=== PATIENT | male | born 1945 ===

== ENCOUNTER 2020-02-01 15:45 | Inpatient (IN) | payer MEDICARE ==
[2020-02-01 21:16] LABS: Basophils # (Auto) 0.1 K/mm3 (0.0-0.1); Basophils % (Auto) 0.8 % (0.0-1.8); Eosinophils % (Auto) 0.7 % (0.0-4.3); Hematocrit 45.7 % (35.5-45.6); Hemoglobin 15.3 gm/dl (11.8-15.2); Lymphocytes # (Auto) 0.8 K/mm3 (1.2-5.4); Lymphocytes % (Auto) 12.1 % (13.4-35.0); Mean Corpuscular HGB Conc 34 % (32-34); Mean Corpuscular Volume 92 fl (84-94); Monocytes # (Auto) 0.4 K/mm3 (0.0-0.8); Monocytes % (Auto) 6.7 % (0.0-7.3); Platelet Count 184 K/mm3 (140-440); Red Blood Count 4.98 M/mm3 (3.65-5.03); Red Cell Distribution Width 14.3 % (13.2-15.2)
[2020-02-01] MEDS: MELATONIN 5 MG TAB PO SCH (21:21)
[2020-02-01] MEDS: traZODone 50 MG TAB PO PRN (21:21)
[2020-02-01 21:32] LABS: Alanine Aminotransferase 13 units/L (7-56); Albumin 4.5 g/dL (3.9-5); BUN/Creatinine Ratio 15; Blood Urea Nitrogen 16 mg/dL (9-20); Calcium 9.5 mg/dL (8.4-10.2); Chol/HDL Ratio 3.77 %; HDL Cholesterol 48 mg/dL (40-59); Hemolysis Index 13; LDL Cholesterol,Direct 120 mg/dL (50-130)
[2020-02-02] MEDS: LORazepam 2 MG/ML VIAL IM PRN ×2 (01:00→13:45)
[2020-02-02] MEDS ORDERED: NON-FORMULARY EACH (Clonazepam [Klonopin] 1 MG) PO PRN (10:25)
[2020-02-02] MEDS ORDERED: clonazePAM 0.5 MG TAB PO PRN (10:46)
--- NOTE | 2020-02-02 10:48 | History and Physical Report ---
GP History & Physical - History of Present Illness Date of admission: 02/01/20 Date of Examination: 02/02/20 Reason for Admission: Danger to self, Danger to others, Impaired reality testing, Unable to care for self Chief Complaint: Confused, aggressive, paranoid and searching for his gun History of Present Illness: The patient is a 74yo retired male with history of Dementia and multiple medical problems including Subdural bleed in 2019, CAD, CA and Nephrectomy. Per Nursing note, the patient's souse reports that the patient has been experiencing delusions and aggressive behavior at home. Spouse reports she has become fearful of patient's delusional behavior accusing spouse of having a boyfriend. Spouse reports further that patient has thrown her clothes out and he was asking for his gun, but he never have a gun. Patient scored 21 in mini- mental exam. Patient interviewed by me this morning. He is alert, calm and pleasant but confused. He states that he is at [facility], does not know why he is here, says "you tell me"; unable to tell today's date and states the year as 2019 and the month as November. He is able to name the current president correctly. He reports being good mood, denies SI/HI/AVH/Paranoia. He repeatedly asks the same questions despite receiving the answers to same questions a few minutes earlier. PAST PSYCHIATRIC HISTORY: Unknown PAST MEDICAL HISTORY: Back injury/pain, CHF, CAD, GERD, Kidney Stone, Hyperlipidemia, CA with surgical hx/o Appendectomy, Craniotomy, Hernia Repair, Nephrectomy and Spinal Fusion Family Psychiatric History None reported or documented SOCIAL HISTORY Marital Status: Living Arrangements: lives with Employment Status: retired Access to guns/weapons: no Education: some college History of Abuse: no Legal History: no REVIEW OF SYSTEMS Constitutional: Negative for weight loss ENT: Negative for stridor Respiratory: Negative for cough or hemoptysis All other systems reviewed and are negative MENTAL STATUS EXAMINATION General Appearance and Behavior: age appropriate, good eye contact, cooperative with questioning and polite Cooperation: Cooperative Psychomotor Behavior: within normal limits Mood: OK Affect and affective range: Congruent with stated mood Thought Process: Goal-directed Thought Content: Confused Speech: Normal volume and Regular rate and rhythm Intellectual Functioning Impaired Suicidal Ideation: Denies SI Homicidal Ideation: Denies HI Impulse Control: impaired Insight and Judgment: impaired insight and judgment Memory: impaired Attention: Normal Orientation: alert and oriented x 1 - Psychiatric problem (1) Dementia with behavioral disturbance Current Visit: Yes Status: Acute (2) Dementia with psychosis Current Visit: Yes Status: Acute Treatment Plan Patient will be admitted for inpatient psychiatric evaluation, medication adjustment and close monitoring. The patient's behavior, mood, sleep and appetite will be closely monitored. Patient will be enrolled in individual and group therapeutic sessions and encouraged to attend. Patient will be provided with a safe and structured environment. Patient's physical health needs will be addressed by the Hospitalist. Hospitalist Consulted Labs including CBC, CMP, Lipid profile and Hemoglobin A1C ordered Social Assessment will be completed and the Social Science Analyst will work with patient and family to ensure a suitable and safe disposition Medication adjustment will be made as clinically indicated Usual Wellness Sikh/Preservation: - Start Trazodone 50 mg po QHS & 50 mg po QHS PRN between 10 PM & 2 AM for insomnia - Start Melatonin 5 mg po QHS to promote circadian rhythm ELOS 7 days The patient agreed on the treatment plan, understood the risk, benefit, alternative treatment, potential consequence of no treatment, and gave informed consent Legal Status: Voluntary Patient Problems: Current Active Problems Dementia with behavioral disturbance (Acute) Dementia with psychosis (Acute) Reaction to Hospitalization: Accepting Medications and Allergies Allergies Allergy/AdvReac Type Severity Reaction Status Date / Time aripiprazole [From Abilify] AdvReac Unknown Verified 02/01/20 18:13 Home Medications Medication Instructions Recorded Confirmed Last Taken Type Amiodarone [Cordarone 200 MG TAB] 200 mg PO DAILY 02/02/20 02/02/20 Unknown History Aspirin EC [Halfprin EC] 81 mg PO QDAY 02/02/20 02/02/20 Unknown History Eszopiclone [Lunesta] 3 mg PO QHS 02/02/20 02/02/20 Unknown History Gabapentin [Neurontin] 600 mg PO QHS 02/02/20 02/02/20 Unknown History clonazePAM [Klonopin] 1 mg PO DAILY PRN 02/02/20 02/02/20 Unknown History Active Meds: Active Medications Amiodarone HCl (Cordarone) 200 mg PO DAILY [facility] Aspirin (Halfprin Ec) 81 mg PO QDAY [facility] Gabapentin (Gabapentin) 600 mg PO QHS [facility] Haloperidol (Haldol) 5 mg PO Q6H PRN PRN Reason: Agitation Lorazepam (Ativan) 2 mg IM Q6H PRN PRN Reason: Agitation Last Admin: 02/02/20 01:00 Dose: 2 mg Documented by: Melatonin (Melatonin) 5 mg PO QHS [facility] Last Admin: 02/01/20 21:21 Dose: 5 mg Documented by: Miscellaneous Medication (Clonazepam [Klonopin]) 1 mg PO DAILY PRN PRN Reason: Anxiety Miscellaneous Medication (Eszopiclone [Lunesta]) 3 mg PO QHS [facility] Trazodone HCl (Desyrel) 50 mg PO QHS PRN PRN Reason: insomnia Last Admin: 02/01/20 21:21 Dose: 50 mg Documented by: Results - Results Labs/Vitals: Laboratory Last Values WBC 6.7 K/mm3 (4.5-11.0) 02/01/20 20:43 RBC 4.98 M/mm3 (3.65-5.03) 02/01/20 20:43 Hgb 15.3 gm/dl (11.8-15.2) H 02/01/20 20:43 Hct 45.7 % (35.5-45.6) H 02/01/20 20:43 MCV 92 fl (84-94) 02/01/20 20:43 MCH 31 pg (28-32) 02/01/20 20:43 MCHC 34 % (32-34) 02/01/20 20:43 RDW 14.3 % (13.2-15.2) 02/01/20 20:43 Plt Count 184 K/mm3 (140-440) 02/01/20 20:43 Lymph % (Auto) 12.1 % (13.4-35.0) L 02/01/20 20:43 [place] % (Auto) 6.7 % (0.0-7.3) 02/01/20 20:43 Eos % (Auto) 0.7 % (0.0-4.3) 02/01/20 20:43 Baso % (Auto) 0.8 % (0.0-1.8) 02/01/20 20:43 Lymph # 0.8 K/mm3 (1.2-5.4) L 02/01/20 20:43 [place] # 0.4 K/mm3 (0.0-0.8) 02/01/20 20:43 Eos # 0.0 K/mm3 (0.0-0.4) 02/01/20 20:43 Baso # 0.1 K/mm3 (0.0-0.1) 02/01/20 20:43 Seg Neutrophils % 79.7 % (40.0-70.0) H 02/01/20 20:43 Seg Neutrophils # 5.3 K/mm3 (1.8-7.7) 02/01/20 20:43 Sodium 142 mmol/L (137-145) 02/01/20 20:43 Potassium 4.1 mmol/L (3.6-5.0) 02/01/20 20:43 Chloride 101.2 mmol/L (98-107) 02/01/20 20:43 Carbon Dioxide 21 mmol/L (22-30) L 02/01/20 20:43 Anion Gap 24 mmol/L 02/01/20 20:43 BUN 16 mg/dL (9-20) 02/01/20 20:43 Creatinine 1.1 mg/dL (0.8-1.5) 02/01/20 20:43 Estimated GFR > 60 ml/min 02/01/20 20:43 BUN/Creatinine Ratio 15 % 02/01/20 20:43 Glucose 118 mg/dL (75-100) H 02/01/20 20:43 POC Glucose 88 (70-105) 02/02/20 07:28 Hemoglobin A1c 5.4 % (4-6) 02/01/20 20:43 Calcium 9.5 mg/dL (8.4-10.2) 02/01/20 20:43 Total Bilirubin 0.60 mg/dL (0.1-1.2) 02/01/20 20:43 AST 22 units/L (5-40) 02/01/20 20:43 ALT 13 units/L (7-56) 02/01/20 20:43 Alkaline Phosphatase 127 units/L (35-129) 02/01/20 20:43 Total Protein 8.2 g/dL (6.3-8.2) 02/01/20 20:43 Albumin 4.5 g/dL (3.9-5) 02/01/20 20:43 Albumin/Globulin Ratio 1.2 % 02/01/20 20:43 Triglycerides 75 mg/dL (2-149) 02/01/20 20:43 Cholesterol 181 mg/dL (50-199) 02/01/20 20:43 LDL Cholesterol Direct 120 mg/dL (50-130) 02/01/20 20:43 HDL Cholesterol 48 mg/dL (40-59) 02/01/20 20:43 Cholesterol/HDL Ratio 3.77 % 02/01/20 20:43 TSH 2.410 mlU/mL (0.270-4.200) 02/01/20 20:43 Last Vital Signs Temp 98.3 F 02/02/20 07:45 Pulse 73 02/02/20 07:45 Resp 18 02/02/20 07:45 BP 148/73 02/02/20 07:45 Pulse Ox 94 02/02/20 07:45 Physical Examination - Constitutional Vitals: Vital Signs Temp Pulse Resp BP Pulse Ox 98.3 F 73 18 148/73 94 02/02/20 07:45 02/02/20 07:45 02/02/20 07:45 02/02/20 07:45 02/02/20 07:45 Temperature -Last 24 Hours Temperature 98.3 F Mental Status Exam - Vital signs Last Vital Signs Temp 98.3 F 02/02/20 07:45 Pulse 73 02/02/20 07:45 Resp 18 02/02/20 07:45 BP 148/73 02/02/20 07:45 Pulse Ox 94 02/02/20 07:45 Assessment and Plan - Psychiatric problem (1) Dementia with behavioral disturbance Current Visit: Yes Status: Acute (2) Dementia with psychosis Current Visit: Yes Status: Acute Physician Certification - Certification Statement Physician Certification Statement: This is an acknowledgement statement that AMANDO BYNUM is a 74 year old M who requires inpatient psychiatric admission for treatment which could reasonably be expected to improve the patient's condition for psychosis and behavioral disturbance Estimated period of time patient will need to remain in the hospital: [7] Plan for post-hospital care: [Out-patient care]
[2020-02-02] MEDS: HALOPERIDOL 5 MG TAB PO PRN ×2 (11:54→22:21)
[2020-02-02] MEDS: ASPIRIN EC 81 MG TAB PO SCH (11:54)
[2020-02-02] MEDS: AMIODARONE 200 MG TAB PO SCH (11:54)
[2020-02-02] MEDS ORDERED: ZIPRASIDONE MESYLATE 20 MG VIAL IM ONE (16:19)
[2020-02-02] MEDS ORDERED: ESZOPICLONE 3 MG PO SCH (22:00)
[2020-02-02] MEDS ORDERED: GABAPENTIN 300 MG CAP PO SCH (22:00)
[2020-02-02] MEDS ORDERED: QUEtiapine 25 MG TAB PO SCH (22:00)
[2020-02-02] MEDS: ZOLPIDEM 5 MG TAB PO PRN (22:20)
[2020-02-02] MEDS: traZODone 50 MG TAB PO PRN (22:20)
[2020-02-02] MEDS: MELATONIN 5 MG TAB PO SCH (22:21)
[2020-02-02] MEDS: DONEPEZIL 5 MG TAB PO SCH (22:21)
--- NOTE | 2020-02-03 08:14 | Progress Note ---
Subjective Date of service: 02/03/20 Principal diagnosis: Dementia with behavioral disturbance, Dementia with psychosis Subjective Comment: SUBJECTIVE: Patient reviewed this morning. He is pleasantly confused, denies SI/HI/AVH. Per telephone conversation with yesterday, reports that patient has been very paranoid, accusatory and seeking for his guns. He did not respond to Seroquel prescribed by his Neurologist. REVIEW OF SYSTEMS Constitutional: Negative for weight loss ENT: Negative for stridor Respiratory: Negative for cough or hemoptysis All other systems reviewed and are negative MENTAL STATUS EXAMINATION General Appearance and Behavior: age appropriate, good eye contact, cooperative with questioning and polite Cooperation: Cooperative Psychomotor Behavior: within normal limits Mood: OK Affect and affective range: Congruent with stated mood Thought Process: Goal-directed Thought Content: Confused Speech: Normal volume and Regular rate and rhythm Intellectual Functioning Impaired Suicidal Ideation: Denies SI Homicidal Ideation: Denies HI Impulse Control: impaired Insight and Judgment: impaired insight and judgment Memory: impaired Attention: Normal Orientation: alert and oriented x 1 - Psychiatric problem (1) Dementia with behavioral disturbance Current Visit: Yes Status: Acute (2) Dementia with psychosis Current Visit: Yes Status: Acute Treatment Plan Patient will be admitted for inpatient psychiatric evaluation, medication adjustment and close monitoring. The patient's behavior, mood, sleep and appetite will be closely monitored. Patient will be enrolled in individual and group therapeutic sessions and encouraged to attend. Patient will be provided with a safe and structured environment. Patient's physical health needs will be addressed by the Hospitalist. Hospitalist Consulted Labs including CBC, CMP, Lipid profile and Hemoglobin A1C ordered Social Assessment will be completed and the Service Promoter Salesperson will work with patient and family to ensure a suitable and safe disposition Medication adjustment will be made as clinically indicated Medication adjustment made today: Seroquel discontinued and Risperidone 0.5mg bid started for paranoia. ELOS 7 days The patient agreed on the treatment plan, understood the risk, benefit, alternative treatment, potential consequence of no treatment, and gave informed consent Legal Status: Voluntary Assessment and Plan - Patient Problems (1) Dementia with behavioral disturbance Current Visit: Yes Status: Acute (2) Dementia with psychosis Current Visit: Yes Status: Acute Medications and Allergies Allergies Allergy/AdvReac Type Severity Reaction Status Date / Time [facility] [[facility] AdvReac Unknown Verified 02/01/20 18:13 Home Medications Medication Instructions Recorded Confirmed Last Taken Type Amiodarone [Cordarone 200 MG TAB] 200 mg PO DAILY 02/02/20 02/02/20 Unknown History Aspirin EC [Halfprin EC] 81 mg PO QDAY 02/02/20 02/02/20 Unknown History Atorvastatin 20 mg PO QHS 02/02/20 02/02/20 Unknown History Eszopiclone [Lunesta] 3 mg PO QHS 02/02/20 02/02/20 Unknown History Gabapentin [Neurontin] 600 mg PO QHS 02/02/20 02/02/20 Unknown History Morphine 30 mg PO DAILY 02/02/20 02/02/20 Unknown History Omeprazole 20 mg PO DAILY 02/02/20 02/02/20 Unknown History Tamsulosin 0.4 mg PO QHS 02/02/20 02/02/20 Unknown History Venlafaxine Xr 37.5 mg PO DAILY 02/02/20 02/02/20 Unknown History clonazePAM [Klonopin] 1 mg PO DAILY PRN 02/02/20 02/02/20 Unknown History Active Meds: Active Medications Amiodarone HCl (Cordarone) 200 mg PO DAILY [facility] Last Admin: 02/02/20 11:54 Dose: 200 mg Documented by: Aspirin (Halfprin Ec) 81 mg PO QDAY [facility] Last Admin: 02/02/20 11:54 Dose: 81 mg Documented by: Clonazepam (Klonopin) 1 mg PO QDAY PRN PRN Reason: Anxiety Donepezil HCl (Aricept) 5 mg PO QHS [facility] Last Admin: 02/02/20 22:21 Dose: 5 mg Documented by: Gabapentin (Gabapentin) 600 mg PO QHS [facility] Last Admin: 02/02/20 22:20 Dose: 600 mg Documented by: Haloperidol (Haldol) 5 mg PO Q6H PRN PRN Reason: Agitation Last Admin: 02/02/20 22:21 Dose: 5 mg Documented by: Lorazepam (Ativan) 2 mg IM Q6H PRN PRN Reason: Agitation Last Admin: 02/02/20 13:45 Dose: 2 mg Documented by: Melatonin (Melatonin) 5 mg PO QHS [facility] Last Admin: 02/02/20 22:21 Dose: 5 mg Documented by: Miscellaneous Medication (Atorvastatin) 20 mg PO QHS [facility] Miscellaneous Medication (Morphine) 30 mg PO DAILY [facility] Miscellaneous Medication (Omeprazole) 20 mg PO DAILY [facility] Miscellaneous Medication (Tamsulosin) 0.4 mg PO QHS [facility] Miscellaneous Medication (Venlafaxine Xr) 37.5 mg PO DAILY [facility] Quetiapine Fumarate (Seroquel) 50 mg PO QHS [facility] Last Admin: 02/02/20 22:20 Dose: 50 mg Documented by: Trazodone HCl (Desyrel) 50 mg PO QHS PRN PRN Reason: insomnia Last Admin: 02/02/20 22:20 Dose: 50 mg Documented by: Zolpidem Tartrate (Ambien) 5 mg PO QHS PRN PRN Reason: Insomnia Last Admin: 02/02/20 22:20 Dose: 5 mg Documented by: Results - Results Labs/Vitals: Laboratory Last Values WBC 6.7 K/mm3 (4.5-11.0) 02/01/20 20:43 RBC 4.98 M/mm3 (3.65-5.03) 02/01/20 20:43 Hgb 15.3 gm/dl (11.8-15.2) H 02/01/20 20:43 Hct 45.7 % (35.5-45.6) H 02/01/20 20:43 MCV 92 fl (84-94) 02/01/20 20:43 MCH 31 pg (28-32) 02/01/20 20:43 MCHC 34 % (32-34) 02/01/20 20:43 RDW 14.3 % (13.2-15.2) 02/01/20 20:43 Plt Count 184 K/mm3 (140-440) 02/01/20 20:43 Lymph % (Auto) 12.1 % (13.4-35.0) L 02/01/20 20:43 [place] % (Auto) 6.7 % (0.0-7.3) 02/01/20 20:43 Eos % (Auto) 0.7 % (0.0-4.3) 02/01/20 20:43 Baso % (Auto) 0.8 % (0.0-1.8) 02/01/20 20:43 Lymph # 0.8 K/mm3 (1.2-5.4) L 02/01/20 20:43 [place] # 0.4 K/mm3 (0.0-0.8) 02/01/20 20:43 Eos # 0.0 K/mm3 (0.0-0.4) 02/01/20 20:43 Baso # 0.1 K/mm3 (0.0-0.1) 02/01/20 20:43 Seg Neutrophils % 79.7 % (40.0-70.0) H 02/01/20 20:43 Seg Neutrophils # 5.3 K/mm3 (1.8-7.7) 02/01/20 20:43 Sodium 142 mmol/L (137-145) 02/01/20 20:43 Potassium 4.1 mmol/L (3.6-5.0) 02/01/20 20:43 Chloride 101.2 mmol/L (98-107) 02/01/20 20:43 Carbon Dioxide 21 mmol/L (22-30) L 02/01/20 20:43 Anion Gap 24 mmol/L 02/01/20 20:43 BUN 16 mg/dL (9-20) 02/01/20 20:43 Creatinine 1.1 mg/dL (0.8-1.5) 02/01/20 20:43 Estimated GFR > 60 ml/min 02/01/20 20:43 BUN/Creatinine Ratio 15 % 02/01/20 20:43 Glucose 118 mg/dL (75-100) H 02/01/20 20:43 POC Glucose 88 (70-105) 02/02/20 07:28 Hemoglobin A1c 5.4 % (4-6) 02/01/20 20:43 Calcium 9.5 mg/dL (8.4-10.2) 02/01/20 20:43 Total Bilirubin 0.60 mg/dL (0.1-1.2) 02/01/20 20:43 AST 22 units/L (5-40) 02/01/20 20:43 ALT 13 units/L (7-56) 02/01/20 20:43 Alkaline Phosphatase 127 units/L (35-129) 02/01/20 20:43 Total Protein 8.2 g/dL (6.3-8.2) 02/01/20 20:43 Albumin 4.5 g/dL (3.9-5) 02/01/20 20:43 Albumin/Globulin Ratio 1.2 % 02/01/20 20:43 Triglycerides 75 mg/dL (2-149) 02/01/20 20:43 Cholesterol 181 mg/dL (50-199) 02/01/20 20:43 LDL Cholesterol Direct 120 mg/dL (50-130) 02/01/20 20: HDL Cholesterol 48 mg/dL (40-59) 02/01/20 20: Cholesterol/HDL Ratio 3.77 % 02/01/20 20:43 TSH 2.410 mlU/mL (0.270-4.200) 02/01/20 20:43 Last Vital Signs Temp 97.4 F L 02/02/20 22:00 Pulse 82 02/02/20 22:00 Resp 15 02/02/20 22:00 BP 147/74 02/02/20 22:00 Pulse Ox 91 02/02/20 22:00
[2020-02-03] MEDS ORDERED: VENLAFAXINE 37.5 MG PO SCH ×2 (10:00)
[2020-02-03] MEDS ORDERED: NON-FORMULARY EACH (Omeprazole 20 MG) PO SCH (10:00)
[2020-02-03] MEDS ORDERED: MORPHINE 30 MG PO SCH (10:00)
[2020-02-03] MEDS: PANTOPRAZOLE 20 MG TAB PO SCH (11:05)
[2020-02-03] MEDS: ASPIRIN EC 81 MG TAB PO SCH (11:05)
[2020-02-03] MEDS: AMIODARONE 200 MG TAB PO SCH (11:06)
[2020-02-03] MEDS: risperiDONE 0.25 MG TAB PO SCH ×2 (11:06→21:47)
[2020-02-03] MEDS: clonazePAM 0.5 MG TAB PO SCH ×2 (11:07→21:48)
[2020-02-03] MEDS: GABAPENTIN 300 MG CAP PO SCH ×2 (14:04→20:45)
--- NOTE | 2020-02-03 19:17 | Consultation ---
History of Present Illness - Reason for Consult Consult date: 02/02/20 Medical management Requesting physician: JANICE KUHN - History of Present Illness 74yo retired male with history of Dementia and multiple medical problems including Subdural bleed in 2019, CAD, MT and Nephrectomy. Per Nursing note, the patient's souse reports that the patient has been experiencing delusions and aggressive behavior at home. Spouse reports she has become fearful of patient's delusional behavior accusing spouse of having a boyfriend. Spouse reports further that patient has thrown her clothes out and he was asking for his gun, but he never have a gun. Patient scored 21 in mini- mental exam. He is alert, calm and pleasant but confused. He states that he is at [facility], does not know why he is here, says "you tell me"; unable to tell today's date and states the year as 2019 and the month as November. He is able to name the current president correctly. He reports being good mood, denies SI/HI/AVH/Paranoia. He repeatedly asks the same questions d espite receiving the answers to same questions a few minutes earlier. PAST PSYCHIATRIC HISTORY: Unknown PAST MEDICAL HISTORY: Back injury/pain, CHF, CAD, GERD, Kidney Stone, Hyperlipidemia, MT with surgical hx/o Appendectomy, Craniotomy, Hernia Repair, Nephrectomy and Spinal Fusion Family Psychiatric History None reported or documented SOCIAL HISTORY Marital Status: Living Arrangements: lives with Employment Status: retired Access to guns/weapons: no Education: some college History of Abuse: no Legal History: no REVIEW OF SYSTEMS Review of System: Constitutional: no fever, no chills, no weight loss Ears, eyes, nose, mouth and throat: no nasal congestion, no nasal discharge, no sinus pressure, no vision change, no red eye. Neck: No neck pain or rigidity. Cardiovascular: No chest pain, no orthopnea, no palpitations, no leg swelling Respiratory: No shortness of breath, no cough, no congestion, no wheezing Gastrointestinal: no abdominal pain, no nausea, no vomiting Genitourinary : no dysuria, no hematuria Musculoskeletal: no joint swelling or muscle ache Integumentary: no rash, no pruritis Neurological: no parathesias, no numbness, no tingling, confusion and dementia with agitation Endocrine: no cold or heat intolerance, no polyuria or polydipsia Hematologic/Lymphatic: no easy bruising, no easy bleeding, no gland swelling Allergic/Immunologic: no urticaria, no angioedema. Medications and Allergies Allergies Allergy/AdvReac Type Severity Reaction Status Date / Time aripiprazole [From Abilify] AdvReac Unknown Verified 02/01/20 18:13 Home Medications Medication Instructions Recorded Confirmed Last Taken Type Amiodarone [Cordarone 200 MG TAB] 200 mg PO DAILY 02/02/20 02/02/20 Unknown History Aspirin EC [Halfprin EC] 81 mg PO QDAY 02/02/20 02/02/20 Unknown History Atorvastatin 20 mg PO QHS 02/02/20 02/02/20 Unknown History Eszopiclone [Lunesta] 3 mg PO QHS 02/02/20 02/02/20 Unknown History Gabapentin [Neurontin] 600 mg PO QHS 02/02/20 02/02/20 Unknown History Morphine 30 mg PO DAILY 02/02/20 02/02/20 Unknown History Omeprazole 20 mg PO DAILY 02/02/20 02/02/20 Unknown History Tamsulosin 0.4 mg PO QHS 02/02/20 02/02/20 Unknown History Venlafaxine Xr 37.5 mg PO DAILY 02/02/20 02/02/20 Unknown History clonazePAM [Klonopin] 1 mg PO DAILY PRN 02/02/20 02/02/20 Unknown History Active Meds: Active Medications Amiodarone HCl (Cordarone) 200 mg PO DAILY [facility] Last Admin: 02/03/20 11:06 Dose: 200 mg Documented by: Aspirin (Halfprin Ec) 81 mg PO QDAY [facility] Last Admin: 02/03/20 11:05 Dose: 81 mg Documented by: Atorvastatin Calcium (Lipitor) 20 mg PO QHS [facility] Clonazepam (Klonopin) 1 mg PO QDAY PRN PRN Reason: Anxiety Clonazepam (Klonopin) 0.25 mg PO BID [facility] Last Admin: 02/03/20 11:07 Dose: 0.25 mg Documented by: Donepezil HCl (Aricept) 5 mg PO QHS [facility] Last Admin: 02/02/20 22:21 Dose: 5 mg Documented by: Gabapentin (Gabapentin) 300 mg PO TID [facility] Last Admin: 03/28/20 14:04 Dose: 300 mg Documented by: Haloperidol (Haldol) 5 mg PO Q6H PRN PRN Reason: Agitation Last Admin: 02/02/20 22:21 Dose: 5 mg Documented by: Lorazepam (Ativan) 2 mg IM Q6H PRN PRN Reason: Agitation Last Admin: 02/02/20 13:45 Dose: 2 mg Documented by: Melatonin (Melatonin) 5 mg PO QHS [facility] Last Admin: 02/02/20 22:21 Dose: 5 mg Documented by: Miscellaneous Medication (Morphine) 30 mg PO DAILY [facility] Miscellaneous Medication (Venlafaxine Xr) 37.5 mg PO DAILY [facility] Pantoprazole Sodium (Protonix) 20 mg PO QDAY [facility] Last Admin: 02/03/20 11:05 Dose: 20 mg Documented by: Risperidone (Risperdal) 0.5 mg PO BID [facility] Last Admin: 02/03/20 11:06 Dose: 0.5 mg Documented by: Tamsulosin HCl (Flomax) 0.4 mg PO QHS [facility] Trazodone HCl (Desyrel) 50 mg PO QHS PRN PRN Reason: insomnia Last Admin: 02/02/20 22:20 Dose: 50 mg Documented by: Zolpidem Tartrate (Ambien) 5 mg PO QHS PRN PRN Reason: Insomnia Last Admin: 02/02/20 22:20 Dose: 5 mg Documented by: Exam - Constitutional Vitals: Temp Pulse Resp BP Pulse Ox 98.4 F 83 18 120/53 93 02/03/20 09:22 02/03/20 09:22 02/03/20 09:22 02/03/20 09:22 02/03/20 09:22 General appearance: Present: no acute distress, well-nourished - EENT Eyes: Present: PERRL ENT: hearing intact, clear oral mucosa - Neck Neck: Present: supple, normal ROM - Respiratory Respiratory effort: normal Respiratory: bilateral: CTA - Cardiovascular Heart rate: 78 Rhythm: regular Heart Sounds: Present: S1 & S2. Absent: rub, click - Extremities Extremities: pulses symmetrical, No edema Peripheral Pulses: within normal limits - Abdominal General gastrointestinal: Present: soft, non-tender, non-distended, normal bowel sounds Male genitourinary: Present: normal - Integumentary Integumentary: Present: clear, warm, dry - Musculoskeletal Musculoskeletal: gait normal, strength equal bilaterally - Psychiatric Psychiatric: appropriate mood/affect, intact judgment & insight - Neurologic Neurologic: CNII-XII intact, moves all extremities Results - Labs CBC & Chem 7: 02/01/20 20:43 02/01/20 20:43 Assessment and Plan - Patient Problems (1) Hypertension Current Visit: Yes Status: Chronic Qualifiers: Hypertension type: essential hypertension Qualified Code(s): I10 - Essential (primary) hypertension Plan to address problem: Continue antihypertensives (2) Arrhythmia Current Visit: Yes Status: Chronic Qualifiers: Arrhythmia type: unspecified cardiac arrhythmia Qualified Code(s): I49.9 - Cardiac arrhythmia, unspecified Plan to address problem: Continue amiodarone (3) Generalized anxiety disorder Current Visit: Yes Status: Chronic Plan to address problem: Continue clonazepam (4) Hyperlipidemia Current Visit: Yes Status: Chronic Qualifiers: Hyperlipidemia type: mixed hyperlipidemia Qualified Code(s): E78.2 - Mixed hyperlipidemia Plan to address problem: Continue statins in the form of atorvastatin 20 mg p.o. daily (5) GERD (gastroesophageal reflux disease) Current Visit: Yes Status: Chronic Qualifiers: Esophagitis presence: without esophagitis Qualified Code(s): K21.9 - Gastro-esophageal reflux disease without esophagitis Plan to address problem: Continue omeprazole 20 mg once a day (6) BPH (benign prostatic hyperplasia) Current Visit: Yes Status: Chronic Qualifiers: Lower urinary tract symptom presence: symptoms present Lower urinary tract symptom detail: urinary hesitancy Qualified Code(s): N40.1 - Benign prostatic hyperplasia with lower urinary tract symptoms; R39.11 - Hesitancy of micturition Plan to address problem: Continue Flomax 0.4 mg once a day (7) Depression Current Visit: Yes Status: Chronic Qualifiers: Depression Type: unspecified Qualified Code(s): F32.9 - Major depressive disorder, single episode, unspecified Plan to address problem: Continue Effexor 37.5 mg once a day (8) DVT prophylaxis Current Visit: Yes Status: Acute Plan to address problem: On heparin 5000 every 12 and GI prophylaxis
[2020-02-03] MEDS: ZOLPIDEM 5 MG TAB PO PRN (21:48)
[2020-02-03] MEDS: DONEPEZIL 5 MG TAB PO SCH (21:48)
[2020-02-03] MEDS: MELATONIN 5 MG TAB PO SCH (21:48)
[2020-02-03] MEDS: traZODone 50 MG TAB PO PRN (21:48)
[2020-02-03] MEDS: TAMSULOSIN 0.4 MG CAP PO SCH (21:48)
[2020-02-03] MEDS: HEPARIN 5,000 UNIT/1 ML VIAL SUB-Q SCH (21:49)
--- NOTE | 2020-02-04 08:14 | Progress Note ---
Subjective Date of service: 02/04/20 Principal diagnosis: Dementia with behavioral disturbance, Dementia with psychosis Subjective Comment: SUBJECTIVE: Patient reviewed this morning. He is pleasantly confused, he believes that he is somewhere in [place]. He denies SI/HI/AVH. He is compliant with medications. No reported or observed side effects. He slept well last night. Appetite is good. REVIEW OF SYSTEMS Constitutional: Negative for weight loss ENT: Negative for stridor Respiratory: Negative for cough or hemoptysis All other systems reviewed and are negative MENTAL STATUS EXAMINATION General Appearance and Behavior: age appropriate, good eye contact, cooperative with questioning and polite Cooperation: Cooperative Psychomotor Behavior: within normal limits Mood: OK Affect and affective range: Congruent with stated mood Thought Process: Goal-directed Thought Content: Confused Speech: Normal volume and Regular rate and rhythm Intellectual Functioning Impaired Suicidal Ideation: Denies SI Homicidal Ideation: Denies HI Impulse Control: impaired Insight and Judgment: impaired insight and judgment Memory: impaired Attention: Normal Orientation: alert and oriented x 1 - Psychiatric problem (1) Dementia with behavioral disturbance Current Visit: Yes Status: Acute (2) Dementia with psychosis Current Visit: Yes Status: Acute Treatment Plan Patient will be admitted for inpatient psychiatric evaluation, medication adjustment and close monitoring. The patient's behavior, mood, sleep and appetite will be closely monitored. Patient will be enrolled in individual and group therapeutic sessions and encouraged to attend. Patient will be provided with a safe and structured environment. Patient's physical health needs will be addressed by the Hospitalist. Hospitalist Consulted Labs including CBC, CMP, Lipid profile and Hemoglobin A1C ordered Social Assessment will be completed and the Manager Universal will work with patient and family to ensure a suitable and safe disposition Medication adjustment will be made as clinically indicated Medication adjustment made today: None ELOS 3 days Legal Status: Voluntary Assessment and Plan - Patient Problems (1) Dementia with behavioral disturbance Current Visit: Yes Status: Acute (2) Dementia with psychosis Current Visit: Yes Status: Acute Medications and Allergies Allergies Allergy/AdvReac Type Severity Reaction Status Date / Time aripiprazole [From Abilify] AdvReac Unknown Verified 02/01/20 18:13 Home Medications Medication Instructions Recorded Confirmed Last Taken Type Amiodarone [Cordarone 200 MG TAB] 200 mg PO DAILY 02/02/20 02/02/20 Unknown History Aspirin EC [Halfprin EC] 81 mg PO QDAY 02/02/20 02/02/20 Unknown History Atorvastatin 20 mg PO QHS 02/02/20 02/02/20 Unknown History Eszopiclone [Lunesta] 3 mg PO QHS 02/02/20 02/02/20 Unknown History Gabapentin [Neurontin] 600 mg PO QHS 02/02/20 02/02/20 Unknown History Morphine 30 mg PO DAILY 02/02/20 02/02/20 Unknown History Omeprazole 20 mg PO DAILY 02/02/20 02/02/20 Unknown History Tamsulosin 0.4 mg PO QHS 02/02/20 02/02/20 Unknown History Venlafaxine Xr 37.5 mg PO DAILY 02/02/20 02/02/20 Unknown History clonazePAM [Klonopin] 1 mg PO DAILY PRN 02/02/20 02/02/20 Unknown History Active Meds: Active Medications Amiodarone HCl (Cordarone) 200 mg PO DAILY [facility] Last Admin: 02/03/20 11:06 Dose: 200 mg Documented by: Aspirin (Halfprin Ec) 81 mg PO QDAY [facility] Last Admin: 02/03/20 11:05 Dose: 81 mg Documented by: Atorvastatin Calcium (Lipitor) 20 mg PO QHS [facility] Last Admin: 02/03/20 21:48 Dose: 20 mg Documented by: Clonazepam (Klonopin) 1 mg PO QDAY PRN PRN Reason: Anxiety Clonazepam (Klonopin) 0.25 mg PO BID [facility] Last Admin: 02/03/20 21:48 Dose: 0.25 mg Documented by: Donepezil HCl (Aricept) 5 mg PO QHS [facility] Last Admin: 02/03/20 21:48 Dose: 5 mg Documented by: Gabapentin (Gabapentin) 300 mg PO TID [facility] Last Admin: 02/03/20 20:45 Dose: 300 mg Documented by: Haloperidol (Haldol) 5 mg PO Q6H PRN PRN Reason: Agitation Last Admin: 02/02/20 22:21 Dose: 5 mg Documented by: Heparin Sodium (Porcine) (Heparin) 5,000 unit SUB-Q Q12HR [facility] Last Admin: 02/03/20 21:49 Dose: Not Given Documented by: Lorazepam (Ativan) 2 mg IM Q6H PRN PRN Reason: Agitation Last Admin: 02/02/20 13:45 Dose: 2 mg Documented by: Melatonin (Melatonin) 5 mg PO QHS [facility] Last Admin: 02/03/20 21:48 Dose: 5 mg Documented by: Miscellaneous Medication (Morphine) 30 mg PO DAILY [facility] Miscellaneous Medication (Venlafaxine Xr) 37.5 mg PO DAILY [facility] Pantoprazole Sodium (Protonix) 20 mg PO QDAY [facility] Last Admin: 02/03/20 11:05 Dose: 20 mg Documented by: Risperidone (Risperdal) 0.5 mg PO BID [facility] Last Admin: 02/03/20 21:47 Dose: 0.5 mg Documented by: Tamsulosin HCl (Flomax) 0.4 mg PO QHS [facility] Last Admin: 02/03/20 21:48 Dose: 0.4 mg Documented by: Trazodone HCl (Desyrel) 50 mg PO QHS PRN PRN Reason: insomnia Last Admin: 02/03/20 21:48 Dose: 50 mg Documented by: Zolpidem Tartrate (Ambien) 5 mg PO QHS PRN PRN Reason: Insomnia Last Admin: 02/03/20 21:48 Dose: 5 mg Documented by: Results - Results Labs/Vitals: Laboratory Last Values WBC 6.7 K/mm3 (4.5-11.0) 02/01/20 20:43 RBC 4.98 M/mm3 (3.65-5.03) 02/01/20 20:43 Hgb 15.3 gm/dl (11.8-15.2) H 02/01/20 20:43 Hct 45.7 % (35.5-45.6) H 02/01/20 20:43 MCV 92 fl (84-94) 02/01/20 20:43 MCH 31 pg (28-32) 02/01/20 20:43 MCHC 34 % (32-34) 02/01/20 20:43 RDW 14.3 % (13.2-15.2) 02/01/20 20:43 Plt Count 184 K/mm3 (140-440) 02/01/20 20:43 Lymph % (Auto) 12.1 % (13.4-35.0) L 02/01/20 20:43 [place] % (Auto) 6.7 % (0.0-7.3) 02/01/20 20:43 Eos % (Auto) 0.7 % (0.0-4.3) 02/01/20 20:43 Baso % (Auto) 0.8 % (0.0-1.8) 02/01/20 20:43 Lymph # 0.8 K/mm3 (1.2-5.4) L 02/01/20 20:43 [place] # 0.4 K/mm3 (0.0-0.8) 02/01/20 20:43 Eos # 0.0 K/mm3 (0.0-0.4) 02/01/20 20:43 Baso # 0.1 K/mm3 (0.0-0.1) 02/01/20 20:43 Seg Neutrophils % 79.7 % (40.0-70.0) H 02/01/20 20:43 Seg Neutrophils # 5.3 K/mm3 (1.8-7.7) 02/01/20 20:43 Sodium 142 mmol/L (137-145) 02/01/20 20:43 Potassium 4.1 mmol/L (3.6-5.0) 02/01/20 20:43 Chloride 101.2 mmol/L (98-107) 02/01/20 20:43 Carbon Dioxide 21 mmol/L (22-30) L 02/01/20 20:43 Anion Gap 24 mmol/L 02/01/20 20:43 BUN 16 mg/dL (9-20) 02/01/20 20:43 Creatinine 1.1 mg/dL (0.8-1.5) 02/01/20 20:43 Estimated GFR > 60 ml/min 02/01/20 20:43 BUN/Creatinine Ratio 15 % 02/01/20 20:43 Glucose 118 mg/dL (75-100) H 02/01/20 20:43 POC Glucose 88 (70-105) 02/02/20 07:28 Hemoglobin A1c 5.4 % (4-6) 02/01/20 20:43 Calcium 9.5 mg/dL (8.4-10.2) 02/01/20 20:43 Total Bilirubin 0.60 mg/dL (0.1-1.2) 02/01/20 20:43 AST 22 units/L (5-40) 02/01/20 20:43 ALT 13 units/L (7-56) 02/01/20 20:43 Alkaline Phosphatase 127 units/L (35-129) 02/01/20 20:43 Total Protein 8.2 g/dL (6.3-8.2) 02/01/20 20:43 Albumin 4.5 g/dL (3.9-5) 02/01/20 20:43 Albumin/Globulin Ratio 1.2 % 02/01/20 20:43 Triglycerides 75 mg/dL (2-149) 02/01/20 20:43 Cholesterol 181 mg/dL (50-199) 02/01/20 20:43 LDL Cholesterol Direct 120 mg/dL (50-130) 02/01/20 20:43 HDL Cholesterol 48 mg/dL (40-59) 02/01/20 20:43 Cholesterol/HDL Ratio 3.77 % 02/01/20 20:43 TSH 2.410 mlU/mL (0.270-4.200) 02/01/20 20:43 Last Vital Signs Temp 97.4 F L 02/03/20 22:00 Pulse 70 02/03/20 22:00 Resp 20 02/03/20 22:00 BP 129/64 02/03/20 22:00 Pulse Ox 95 02/03/20 22:00
[2020-02-04] MEDS: PANTOPRAZOLE 20 MG TAB PO SCH (09:48)
[2020-02-04] MEDS: ASPIRIN EC 81 MG TAB PO SCH (09:48)
[2020-02-04] MEDS: AMIODARONE 200 MG TAB PO SCH (09:48)
[2020-02-04] MEDS: risperiDONE 0.25 MG TAB PO SCH ×2 (09:48→21:51)
[2020-02-04] MEDS: clonazePAM 0.5 MG TAB PO SCH ×2 (09:49→21:49)
[2020-02-04] MEDS: GABAPENTIN 300 MG CAP PO SCH ×3 (09:49→20:38)
[2020-02-04] MEDS: HEPARIN 5,000 UNIT/1 ML VIAL SUB-Q SCH ×2 (10:48→21:14)
[2020-02-04] MEDS: MELATONIN 5 MG TAB PO SCH (21:50)
[2020-02-04] MEDS: DONEPEZIL 5 MG TAB PO SCH (21:50)
[2020-02-04] MEDS: TAMSULOSIN 0.4 MG CAP PO SCH (21:50)
[2020-02-04] MEDS: ZOLPIDEM 5 MG TAB PO PRN (21:51)
[2020-02-04] MEDS: traZODone 50 MG TAB PO PRN (21:51)
[2020-02-05] MEDS: PANTOPRAZOLE 20 MG TAB PO SCH (09:11)
[2020-02-05] MEDS: GABAPENTIN 300 MG CAP PO SCH ×3 (09:11→20:42)
[2020-02-05] MEDS: ASPIRIN EC 81 MG TAB PO SCH (09:11)
[2020-02-05] MEDS: risperiDONE 0.25 MG TAB PO SCH ×2 (09:11→21:31)
[2020-02-05] MEDS: clonazePAM 0.5 MG TAB PO SCH ×3 (09:12→21:32)
[2020-02-05] MEDS: AMIODARONE 200 MG TAB PO SCH (09:12)
--- NOTE | 2020-02-05 09:37 | Progress Note ---
Subjective Date of service: 02/05/20 Principal diagnosis: Dementia with behavioral disturbance, Dementia with psychosis Subjective Comment: SUBJECTIVE: Patient reviewed this morning. Nursing staff reports pt is alert and oriented x3, calm and cooperative, confused at time, very forgetful, always asking for one time over and over after being spoken to about the same thing, spoke to his but did not remember talking to her, and was asking for phone to call her, pt is medication compliant, good appetite, c/o inability to sleep, ambien 5mg po and trazodone 50mg given prn for sleep, no distress noted. Patient reviewed this morning. He is pleasantly confused. He denies SI/HI/AVH. He is compliant with medications. No reported or observed side effects. He did sleep well last night. Appetite is good. Reason for continuing inpatient treatment: To address sleeping difficulties REVIEW OF SYSTEMS Constitutional: Negative for weight loss ENT: Negative for stridor Respiratory: Negative for cough or hemoptysis All other systems reviewed and are negative MENTAL STATUS EXAMINATION General Appearance and Behavior: age appropriate, good eye contact, cooperative with questioning and polite Cooperation: Cooperative Psychomotor Behavior: within normal limits Mood: OK Affect and affective range: Congruent with stated mood Thought Process: Goal-directed Thought Content: Confused Speech: Normal volume and Regular rate and rhythm Intellectual Functioning Impaired Suicidal Ideation: Denies SI Homicidal Ideation: Denies HI Impulse Control: impaired Insight and Judgment: impaired insight and judgment Memory: impaired Attention: Normal Orientation: alert and oriented x 1 - Psychiatric problem (1) Dementia with behavioral disturbance Current Visit: Yes Status: Acute (2) Dementia with psychosis Current Visit: Yes Status: Acute Treatment Plan Patient will be admitted for inpatient psychiatric evaluation, medication adjustment and close monitoring. The patient's behavior, mood, sleep and appetite will be closely monitored. Patient will be enrolled in individual and group therapeutic sessions and encouraged to attend. Patient will be provided with a safe and structured environment. Patient's physical health needs will be addressed by the Hospitalist. Hospitalist Consulted Labs including CBC, CMP, Lipid profile and Hemoglobin A1C ordered Social Assessment will be completed and the Hose Stripper will work with patient and family to ensure a suitable and safe disposition Medication adjustment will be made as clinically indicated Medication adjustment made today: Clonazepam increased to 0.25mg qam, qnoon and 1 mg qhs. Melatonin increased to 10mg qhs ELOS 3 days Legal Status: Voluntary Assessment and Plan - Patient Problems (1) Dementia with behavioral disturbance Current Visit: Yes Status: Acute (2) Dementia with psychosis Current Visit: Yes Status: Acute Medications and Allergies Allergies Allergy/AdvReac Type Severity Reaction Status Date / Time aripiprazole [From Abilify] AdvReac Unknown Verified 02/01/20 18:13 Home Medications Medication Instructions Recorded Confirmed Last Taken Type Amiodarone [Cordarone 200 MG TAB] 200 mg PO DAILY 02/02/20 02/02/20 Unknown History Aspirin EC [Halfprin EC] 81 mg PO QDAY 02/02/20 02/02/20 Unknown History Atorvastatin 20 mg PO QHS 02/02/20 02/02/20 Unknown History Eszopiclone [Lunesta] 3 mg PO QHS 02/02/20 02/02/20 Unknown History Gabapentin [Neurontin] 600 mg PO QHS 02/02/20 02/02/20 Unknown History Morphine 30 mg PO DAILY 02/02/20 02/02/20 Unknown History Omeprazole 20 mg PO DAILY 02/02/20 02/02/20 Unknown History Tamsulosin 0.4 mg PO QHS 02/02/20 02/02/20 Unknown History Venlafaxine Xr 37.5 mg PO DAILY 02/02/20 02/02/20 Unknown History clonazePAM [Klonopin] 1 mg PO DAILY PRN 02/02/20 02/02/20 Unknown History Active Meds: Active Medications Amiodarone HCl (Cordarone) 200 mg PO DAILY [facility] Last Admin: 02/05/20 09:12 Dose: 200 mg Documented by: Aspirin (Halfprin Ec) 81 mg PO QDAY [facility] Last Admin: 02/05/20 09:11 Dose: 81 mg Documented by: Atorvastatin Calcium (Lipitor) 20 mg PO QHS [facility] Last Admin: 02/04/20 21:50 Dose: 20 mg Documented by: Clonazepam (Klonopin) 1 mg PO QDAY PRN PRN Reason: Anxiety Clonazepam (Klonopin) 0.25 mg PO BID [facility] Last Admin: 02/05/20 09:12 Dose: 0.25 mg Documented by: Donepezil HCl (Aricept) 5 mg PO QHS [facility] Last Admin: 02/04/20 21:50 Dose: 5 mg Documented by: Gabapentin (Gabapentin) 300 mg PO TID [facility] Last Admin: 02/05/20 09:11 Dose: 300 mg Documented by: Haloperidol (Haldol) 5 mg PO Q6H PRN PRN Reason: Agitation Last Admin: 02/02/20 22:21 Dose: 5 mg Documented by: Lorazepam (Ativan) 2 mg IM Q6H PRN PRN Reason: Agitation Last Admin: 02/02/20 13:45 Dose: 2 mg Documented by: Melatonin (Melatonin) 5 mg PO QHS [facility] Last Admin: 02/04/20 21:50 Dose: 5 mg Documented by: Miscellaneous Medication (Morphine) 30 mg PO DAILY [facility] Miscellaneous Medication (Venlafaxine Xr) 37.5 mg PO DAILY [facility] Pantoprazole Sodium (Protonix) 20 mg PO QDAY [facility] Last Admin: 02/05/20 09:11 Dose: 20 mg Documented by: Risperidone (Risperdal) 0.5 mg PO BID [facility] Last Admin: 02/05/20 09:11 Dose: 0.5 mg Documented by: Tamsulosin HCl (Flomax) 0.4 mg PO QHS [facility] Last Admin: 02/04/20 21:50 Dose: 0.4 mg Documented by: Trazodone HCl (Desyrel) 50 mg PO QHS PRN PRN Reason: insomnia Last Admin: 02/04/20 21:51 Dose: 50 mg Documented by: Zolpidem Tartrate (Ambien) 5 mg PO QHS PRN PRN Reason: Insomnia Last Admin: 02/04/20 21:51 Dose: 5 mg Documented by: Results - Results Labs/Vitals: Laboratory Last Values WBC 6.7 K/mm3 (4.5-11.0) 02/01/20 20:43 RBC 4.98 M/mm3 (3.65-5.03) 02/01/20 20:43 Hgb 15.3 gm/dl (11.8-15.2) H 02/01/20 20:43 Hct 45.7 % (35.5-45.6) H 02/01/20 20:43 MCV 92 fl (84-94) 02/01/20 20:43 MCH 31 pg (28-32) 02/01/20 20:43 MCHC 34 % (32-34) 02/01/20 20:43 RDW 14.3 % (13.2-15.2) 02/01/20 20:43 Plt Count 184 K/mm3 (140-440) 02/01/20 20:43 Lymph % (Auto) 12.1 % (13.4-35.0) L 02/01/20 20:43 [place] % (Auto) 6.7 % (0.0-7.3) 02/01/20 20:43 Eos % (Auto) 0.7 % (0.0-4.3) 02/01/20 20:43 Baso % (Auto) 0.8 % (0.0-1.8) 02/01/20 20:43 Lymph # 0.8 K/mm3 (1.2-5.4) L 02/01/20 20:43 [place] # 0.4 K/mm3 (0.0-0.8) 02/01/20 20:43 Eos # 0.0 K/mm3 (0.0-0.4) 02/01/20 20:43 Baso # 0.1 K/mm3 (0.0-0.1) 02/01/20 20:43 Seg Neutrophils % 79.7 % (40.0-70.0) H 02/01/20 20:43 Seg Neutrophils # 5.3 K/mm3 (1.8-7.7) 02/01/20 20:43 Sodium 142 mmol/L (137-145) 02/01/20 20:43 Potassium 4.1 mmol/L (3.6-5.0) 02/01/20 20:43 Chloride 101.2 mmol/L (98-107) 02/01/20 20:43 Carbon Dioxide 21 mmol/L (22-30) L 02/01/20 20:43 Anion Gap 24 mmol/L 02/01/20 20:43 BUN 16 mg/dL (9-20) 02/01/20 20:43 Creatinine 1.1 mg/dL (0.8-1.5) 02/01/20 20:43 Estimated GFR > 60 ml/min 02/01/20 20:43 BUN/Creatinine Ratio 15 % 02/01/20 20:43 Glucose 118 mg/dL (75-100) H 02/01/20 20:43 POC Glucose 88 (70-105) 02/02/20 07:28 Hemoglobin A1c 5.4 % (4-6) 02/01/20 20:43 Calcium 9.5 mg/dL (8.4-10.2) 02/01/20 20:43 Total Bilirubin 0.60 mg/dL (0.1-1.2) 02/01/20 20:43 AST 22 units/L (5-40) 02/01/20 20:43 ALT 13 units/L (7-56) 02/01/20 20:43 Alkaline Phosphatase 127 units/L (35-129) 02/01/20 20:43 Total Protein 8.2 g/dL (6.3-8.2) 02/01/20 20:43 Albumin 4.5 g/dL (3.9-5) 02/01/20 20:43 Albumin/Globulin Ratio 1.2 % 02/01/20 20:43 Triglycerides 75 mg/dL (2-149) 02/01/20 20:43 Cholesterol 181 mg/dL (50-199) 02/01/20 20:43 LDL Cholesterol Direct 120 mg/dL (50-130) 02/01/20 20:43 HDL Cholesterol 48 mg/dL (40-59) 02/01/20 20:43 Cholesterol/HDL Ratio 3.77 % 02/01/20 20:43 TSH 2.410 mlU/mL (0.270-4.200) 02/01/20 20:43 Last Vital Signs Temp 97.6 F 02/05/20 07:31 Pulse 79 02/05/20 07:31 Resp 18 02/05/20 07:31 BP 131/64 02/05/20 07:31 Pulse Ox 95 02/05/20 07:31
[2020-02-05] MEDS: HALOPERIDOL 5 MG TAB PO PRN (12:12)
[2020-02-05] MEDS: TAMSULOSIN 0.4 MG CAP PO SCH (21:29)
[2020-02-05] MEDS: DONEPEZIL 5 MG TAB PO SCH (21:32)
[2020-02-05] MEDS: MELATONIN 5 MG TAB PO SCH (21:34)
[2020-02-06] MEDS: GABAPENTIN 300 MG CAP PO SCH ×3 (08:40→21:21)
[2020-02-06] MEDS: clonazePAM 0.5 MG TAB PO SCH ×3 (08:40→21:22)
[2020-02-06] MEDS: ASPIRIN EC 81 MG TAB PO SCH (09:13)
[2020-02-06] MEDS: PANTOPRAZOLE 20 MG TAB PO SCH (09:13)
[2020-02-06] MEDS: risperiDONE 0.25 MG TAB PO SCH ×2 (09:13→21:23)
[2020-02-06] MEDS: AMIODARONE 200 MG TAB PO SCH (09:13)
--- NOTE | 2020-02-06 09:15 | Progress Note ---
Subjective Date of service: 02/06/20 Principal diagnosis: Dementia with behavioral disturbance, Dementia with psychosis Subjective Comment: SUBJECTIVE: Patient reviewed this morning. He is pleasantly confused. He denies SI/HI/AVH. He is compliant with medications. No reported or observed side effects. He slept better last night. Appetite is good. Reason for continuing inpatient treatment: Unable to care for self. REVIEW OF SYSTEMS Constitutional: Negative for weight loss ENT: Negative for stridor Respiratory: Negative for cough or hemoptysis All other systems reviewed and are negative MENTAL STATUS EXAMINATION General Appearance and Behavior: age appropriate, good eye contact, cooperative with questioning and polite Cooperation: Cooperative Psychomotor Behavior: within normal limits Mood: OK Affect and affective range: Congruent with stated mood Thought Process: Goal-directed Thought Content: Confused Speech: Normal volume and Regular rate and rhythm Intellectual Functioning Impaired Suicidal Ideation: Denies SI Homicidal Ideation: Denies HI Impulse Control: impaired Insight and Judgment: impaired insight and judgment Memory: impaired Attention: Normal Orientation: alert and oriented x 1 - Psychiatric problem (1) Dementia with behavioral disturbance Current Visit: Yes Status: Acute (2) Dementia with psychosis Current Visit: Yes Status: Acute Treatment Plan Patient will be admitted for inpatient psychiatric evaluation, medication adjustment and close monitoring. The patient's behavior, mood, sleep and appetite will be closely monitored. Patient will be enrolled in individual and group therapeutic sessions and encouraged to attend. Patient will be provided with a safe and structured environment. Patient's physical health needs will be addressed by the Hospitalist. Hospitalist Consulted Labs including CBC, CMP, Lipid profile and Hemoglobin A1C ordered Social Assessment will be completed and the Scene Painter will work with patient and family to ensure a suitable and safe disposition Medication adjustment will be made as clinically indicated Medication adjustment made today: None ELOS 1 - 2 days Legal Status: Voluntary Assessment and Plan - Patient Problems (1) Dementia with behavioral disturbance Current Visit: Yes Status: Acute (2) Dementia with psychosis Current Visit: Yes Status: Acute Medications and Allergies Allergies Allergy/AdvReac Type Severity Reaction Status Date / Time aripiprazole [From Abilify] AdvReac Unknown Verified 02/01/20 18:13 Home Medications Medication Instructions Recorded Confirmed Last Taken Type Amiodarone [Cordarone 200 MG TAB] 200 mg PO DAILY 02/02/20 02/02/20 Unknown History Aspirin EC [Halfprin EC] 81 mg PO QDAY 02/02/20 02/02/20 Unknown History Atorvastatin 20 mg PO QHS 02/02/20 02/02/20 Unknown History Eszopiclone [Lunesta] 3 mg PO QHS 02/02/20 02/02/20 Unknown History Gabapentin [Neurontin] 600 mg PO QHS 02/02/20 02/02/20 Unknown History Morphine 30 mg PO DAILY 02/02/20 02/02/20 Unknown History Omeprazole 20 mg PO DAILY 02/02/20 02/02/20 Unknown History Tamsulosin 0.4 mg PO QHS 02/02/20 02/02/20 Unknown History Venlafaxine Xr 37.5 mg PO DAILY 02/02/20 02/02/20 Unknown History clonazePAM [Klonopin] 1 mg PO DAILY PRN 02/02/20 02/02/20 Unknown History Active Meds: Active Medications Amiodarone HCl (Cordarone) 200 mg PO DAILY [facility] Last Admin: 02/05/20 09:12 Dose: 200 mg Documented by: Aspirin (Halfprin Ec) 81 mg PO QDAY [facility] Last Admin: 02/05/20 09:11 Dose: 81 mg Documented by: Atorvastatin Calcium (Lipitor) 20 mg PO QHS [facility] Last Admin: 02/05/20 21:29 Dose: 20 mg Documented by: Clonazepam (Klonopin) 1 mg PO QHS [facility] Last Admin: 02/05/20 21:32 Dose: 1 mg Documented by: Clonazepam (Klonopin) 0.25 mg PO BIDBL [facility] Last Admin: 02/05/20 12:12 Dose: 0.25 mg Documented by: Donepezil HCl (Aricept) 5 mg PO QHS [facility] Last Admin: 02/05/20 21:32 Dose: 5 mg Documented by: Gabapentin (Gabapentin) 300 mg PO TID [facility] Last Admin: 02/05/20 20:42 Dose: 300 mg Documented by: Haloperidol (Haldol) 5 mg PO Q6H PRN PRN Reason: Agitation Last Admin: 02/05/20 12:12 Dose: 5 mg Documented by: Lorazepam (Ativan) 2 mg IM Q6H PRN PRN Reason: Agitation Last Admin: 02/02/20 13:45 Dose: 2 mg Documented by: Melatonin (Melatonin) 10 mg PO QHS [facility] Last Admin: 02/05/20 21:34 Dose: 10 mg Documented by: Miscellaneous Medication (Morphine) 30 mg PO DAILY [facility] Miscellaneous Medication (Venlafaxine Xr) 37.5 mg PO DAILY [facility] Pantoprazole Sodium (Protonix) 20 mg PO QDAY [facility] Last Admin: 02/05/20 09:11 Dose: 20 mg Documented by: Risperidone (Risperdal) 0.5 mg PO BID [facility] Last Admin: 02/05/20 21:31 Dose: 0.5 mg Documented by: Tamsulosin HCl (Flomax) 0.4 mg PO QHS [facility] Last Admin: 02/05/20 21:29 Dose: 0.4 mg Documented by: Trazodone HCl (Desyrel) 50 mg PO QHS PRN PRN Reason: insomnia Last Admin: 02/04/20 21:51 Dose: 50 mg Documented by: Zolpidem Tartrate (Ambien) 5 mg PO QHS PRN PRN Reason: Insomnia Last Admin: 02/04/20 21:51 Dose: 5 mg Documented by: Results - Results Labs/Vitals: Laboratory Last Values WBC 6.7 K/mm3 (4.5-11.0) 02/01/20 20:43 RBC 4.98 M/mm3 (3.65-5.03) 02/01/20 20:43 Hgb 15.3 gm/dl (11.8-15.2) H 02/01/20 20:43 Hct 45.7 % (35.5-45.6) H 02/01/20 20:43 MCV 92 fl (84-94) 02/01/20 20:43 MCH 31 pg (28-32) 02/01/20 20:43 MCHC 34 % (32-34) 02/01/20 20:43 RDW 14.3 % (13.2-15.2) 02/01/20 20:43 Plt Count 184 K/mm3 (140-440) 02/01/20 20:43 Lymph % (Auto) 12.1 % (13.4-35.0) L 02/01/20 20:43 [place] % (Auto) 6.7 % (0.0-7.3) 02/01/20 20:43 Eos % (Auto) 0.7 % (0.0-4.3) 02/01/20 20:43 Baso % (Auto) 0.8 % (0.0-1.8) 02/01/20 20:43 Lymph # 0.8 K/mm3 (1.2-5.4) L 02/01/20 20:43 [place] # 0.4 K/mm3 (0.0-0.8) 02/01/20 20:43 Eos # 0.0 K/mm3 (0.0-0.4) 02/01/20 20:43 Baso # 0.1 K/mm3 (0.0-0.1) 02/01/20 20:43 Seg Neutrophils % 79.7 % (40.0-70.0) H 02/01/20 20:43 Seg Neutrophils # 5.3 K/mm3 (1.8-7.7) 02/01/20 20:43 Sodium 142 mmol/L (137-145) 02/01/20 20:43 Potassium 4.1 mmol/L (3.6-5.0) 02/01/20 20:43 Chloride 101.2 mmol/L (98-107) 02/01/20 20:43 Carbon Dioxide 21 mmol/L (22-30) L 02/01/20 20:43 Anion Gap 24 mmol/L 02/01/20 20:43 BUN 16 mg/dL (9-20) 02/01/20 20:43 Creatinine 1.1 mg/dL (0.8-1.5) 02/01/20 20:43 Estimated GFR > 60 ml/min 02/01/20 20:43 BUN/Creatinine Ratio 15 % 02/01/20 20:43 Glucose 118 mg/dL (75-100) H 02/01/20 20:43 POC Glucose 88 (70-105) 02/02/20 07:28 Hemoglobin A1c 5.4 % (4-6) 02/01/20 20:43 Calcium 9.5 mg/dL (8.4-10.2) 02/01/20 20:43 Total Bilirubin 0.60 mg/dL (0.1-1.2) 02/01/20 20:43 AST 22 units/L (5-40) 02/01/20 20:43 ALT 13 units/L (7-56) 02/01/20 20:43 Alkaline Phosphatase 127 units/L (35-129) 02/01/20 20:43 Total Protein 8.2 g/dL (6.3-8.2) 02/01/20 20:43 Albumin 4.5 g/dL (3.9-5) 02/01/20 20:43 Albumin/Globulin Ratio 1.2 % 02/01/20 20:43 Triglycerides 75 mg/dL (2-149) 02/01/20 20:43 Cholesterol 181 mg/dL (50-199) 02/01/20 20:43 LDL Cholesterol Direct 120 mg/dL (50-130) 02/01/20 20:43 HDL Cholesterol 48 mg/dL (40-59) 02/01/20 20:43 Cholesterol/HDL Ratio 3.77 % 02/01/20 20:43 TSH 2.410 mlU/mL (0.270-4.200) 02/01/20 20:43 Last Vital Signs Temp 97.6 F 02/06/20 07:14 Pulse 69 02/06/20 07:14 Resp 16 02/06/20 07:14 BP 114/48 02/06/20 07:14 Pulse Ox 95 02/06/20 07:14
[2020-02-06] MEDS ORDERED: MORPHINE 30 MG ER TAB PO ONE (10:30)
[2020-02-06] MEDS: VENLAFAXINE XR 75 MG CAP PO SCH (14:15)
[2020-02-06] MEDS: MELATONIN 5 MG TAB PO SCH (21:22)
[2020-02-06] MEDS: TAMSULOSIN 0.4 MG CAP PO SCH (21:22)
[2020-02-06] MEDS: DONEPEZIL 5 MG TAB PO SCH (21:23)
[2020-02-07 07:15] VITALS: BP 138/51
--- NOTE | 2020-02-07 08:40 | Discharge Summary ---
Providers - Providers Date of Admission: 02/01/20 20:24 Date of discharge: 02/07/20 Attending physician: JANICE KUHN MD 02/01/20 17:55 Consult to Physician [CONS] Routine Comment: Consulting Provider: KIRSTEN KIMBROUGH Physician Instructions: Reason For Exam: Medical management of geripsych patient 02/05/20 08:58 Consult to Wound/ET Nurse [CONS] Routine Reason For Exam: wound eval Primary care physician: HOSPICE ADMITTING CLERK Hospitalization Reason for admission: more confused, delusional and aggressive Condition: Stable Hospital course: The patient was provided inpatient psychiatric treatment with safe and supportive environment, group therapy, psychiatric medication, medication adjustment, adverse effect monitor, medical evaluation, medical treatment, social service assessment, social support meeting and placement assessment. The patients behavior, anxiety and compliance to treatment are improved and stabilized. At the time of discharge, the patient had no suicidal ideas, no homicidal ideas, no aggressive thoughts, no endangering behavior and no debilitating adverse effects. The DPOA/guardian and family agreed on the treatment plan, understood the risk, benefit, alternative treatment, potential consequence of no treatment, and gave informed consent. Disposition: DC-01 TO HOME OR SELFCARE Allergies/Adverse Reactions: Allergies aripiprazole [From Abiliy] Adverse Reaction (Verified 02/01/20 18:13) Unknown Vital Signs: Last Vital Signs Temp 97.4 F L 02/07/20 07:06 Pulse 74 02/07/20 07:06 Resp 16 02/07/20 07:06 BP 138/51 02/07/20 07:06 Pulse Ox 93 02/07/20 07:06 Last Lab: Laboratory Last Values WBC 6.7 K/mm3 (4.5-11.0) 02/01/20 20:43 RBC 4.98 M/mm3 (3.65-5.03) 02/01/20 20:43 Hgb 15.3 gm/dl (11.8-15.2) H 02/01/20 20:43 Hct 45.7 % (35.5-45.6) H 02/01/20 20:43 MCV 92 fl (84-94) 02/01/20 20:43 MCH 31 pg (28-32) 02/01/20 20:43 MCHC 34 % (32-34) 02/01/20 20:43 RDW 14.3 % (13.2-15.2) 02/01/20 20:43 Plt Count 184 K/mm3 (140-440) 02/01/20 20:43 Lymph % (Auto) 12.1 % (13.4-35.0) L 02/01/20 20:43 [place] % (Auto) 6.7 % (0.0-7.3) 02/01/20 20:43 Eos % (Auto) 0.7 % (0.0-4.3) 02/01/20 20:43 Baso % (Auto) 0.8 % (0.0-1.8) 02/01/20 20:43 Lymph # 0.8 K/mm3 (1.2-5.4) L 02/01/20 20:43 [place] # 0.4 K/mm3 (0.0-0.8) 02/01/20 20:43 Eos # 0.0 K/mm3 (0.0-0.4) 02/01/20 20:43 Baso # 0.1 K/mm3 (0.0-0.1) 02/01/20 20:43 Seg Neutrophils % 79.7 % (40.0-70.0) H 02/01/20 20:43 Seg Neutrophils # 5.3 K/mm3 (1.8-7.7) 02/01/20 20:43 Sodium 142 mmol/L (137-145) 02/01/20 20:43 Potassium 4.1 mmol/L (3.6-5.0) 02/01/20 20:43 Chloride 101.2 mmol/L (98-107) 02/01/20 20:43 Carbon Dioxide 21 mmol/L (22-30) L 02/01/20 20:43 Anion Gap 24 mmol/L 02/01/20 20:43 BUN 16 mg/dL (9-20) 02/01/20 20:43 Creatinine 1.1 mg/dL (0.8-1.5) 02/01/20 20:43 Estimated GFR > 60 ml/min 02/01/20 20:43 BUN/Creatinine Ratio 15 % 02/01/20 20:43 Glucose 118 mg/dL (75-100) H 02/01/20 20:43 POC Glucose 88 (70-105) 02/02/20 07:28 Hemoglobin A1c 5.4 % (4-6) 02/01/20 20:43 Calcium 9.5 mg/dL (8.4-10.2) 02/01/20 20:43 Total Bilirubin 0.60 mg/dL (0.1-1.2) 02/01/20 20:43 AST 22 units/L (5-40) 02/01/20 20:43 ALT 13 units/L (7-56) 02/01/20 20:43 Alkaline Phosphatase 127 units/L (35-129) 02/01/20 20:43 Total Protein 8.2 g/dL (6.3-8.2) 02/01/20 20:43 Albumin 4.5 g/dL (3.9-5) 02/01/20 20:43 Albumin/Globulin Ratio 1.2 % 02/01/20 20:43 Triglycerides 75 mg/dL (2-149) 02/01/20 20:43 Cholesterol 181 mg/dL (50-199) 02/01/20 20:43 LDL Cholesterol Direct 120 mg/dL (50-130) 02/01/20 20:43 HDL Cholesterol 48 mg/dL (40-59) 02/01/20 20:43 Cholesterol/HDL Ratio 3.77 % 02/01/20 20:43 TSH 2.410 mlU/mL (0.270-4.200) 02/01/20 20:43 - Discharge Diagnoses (1) Dementia with behavioral disturbance Status: Acute (2) Dementia with psychosis Status: Acute Core Measure Documentation - Palliative Care Palliative Care/ Comfort Measures: Not Applicable - Core Measures Any of the following diagnoses?: none Exam - Constitutional Vitals: Temp Pulse Resp BP Pulse Ox 97.4 F L 74 16 138/51 93 02/07/20 07:06 02/07/20 07:06 02/07/20 07:06 02/07/20 07:06 02/07/20 07:06 General appearance: Present: no acute distress - EENT Eyes: Present: PERRL, EOM intact ENT: hearing intact, clear oral mucosa - Neck Neck: Present: supple, normal ROM - Respiratory Respiratory effort: normal Plan Activity: advance as tolerated Weight Bearing Status: Weight Bear as Tolerated Care Plan Goals: Maintain good and stable mental health. Plan of Treatment: The patient should be compliant with medications, not to use drugs and not to drink alcohol. The family understands that if suicidal ideas, homicidal ideas, or any endangering thoughts/behavior arise, they should immediately seek for emergent assistance including but not limited to crisis hot line and emergency room. Follow up with outpatient Psychiatrist and PCP within 7 - 14 days of discharge. Health Concerns: HTN, HLD Assessment: Dementia with psychosis and behavioral disturbance Follow up with: PRIMARY CARE,MD [Primary Care Provider] - 7 Days Prescriptions: donepeziL [Aricept] 5 mg PO QHS #30 tablet traZODone [Desyrel] 50 mg PO QHS PRN #30 tablet PRN Reason: insomnia Melatonin [Melatonin 5MG TAB] 10 mg PO QHS #60 tablet Gabapentin 300 mg PO TID #90 capsule clonazePAM [KlonoPIN] 0.25 mg PO BIDBL #60 tablet clonazePAM [Klonopin] 1 mg PO DAILY #30 risperiDONE [RisperDAL] 0.5 mg PO BID #120 tablet
[2020-02-07] MEDS: ASPIRIN EC 81 MG TAB PO SCH (09:51)
[2020-02-07] MEDS: clonazePAM 0.5 MG TAB PO SCH (09:51)
[2020-02-07] MEDS: GABAPENTIN 300 MG CAP PO SCH (09:51)
[2020-02-07] MEDS: risperiDONE 0.25 MG TAB PO SCH (09:51)
[2020-02-07] MEDS: VENLAFAXINE XR 75 MG CAP PO SCH (09:52)
[2020-02-07] MEDS: AMIODARONE 200 MG TAB PO SCH (09:52)
[2020-02-07] MEDS: PANTOPRAZOLE 20 MG TAB PO SCH (09:52)
[2020-02-07] MEDS ORDERED: MORPHINE 30 MG ER TAB PO SCH (10:00)
== END 2020-02-07 15:29 | disposition home or self-care (01) | DRG 884 ==
LOC: UNDOADMIN 15:45 → 3A 15:45 → 5A 20:24
PROVIDERS: ADMIT Psychiatry & Neurology Psychiatry; ATTEND Psychiatry & Neurology Psychiatry
DX: F03.91 Unspecified dementia, unspecified severity, with behavioral disturbance (principal); I11.0 Hypertensive heart disease with heart failure; F29 Unspecified psychosis not due to a substance or known physiological condition; I25.10 Atherosclerotic heart disease of native coronary artery without angina pectoris; I50.9 Heart failure, unspecified; K21.9 Gastro-esophageal reflux disease without esophagitis; E87.5 Hyperkalemia; N40.0 Benign prostatic hyperplasia without lower urinary tract symptoms; F32.9 Major depressive disorder, single episode, unspecified; F41.1 Generalized anxiety disorder; I49.9 Cardiac arrhythmia, unspecified; Z87.442 Personal history of urinary calculi; Z90.49 Acquired absence of other specified parts of digestive tract; I25.2 Old myocardial infarction; Z90.5 Acquired absence of kidney
CPT/HCPCS: 36415; 80053; 80061; 82962; 83036; 84443; 85025; G0378; A9270-GY; J1644; J2060; J3246; J3486